=== PATIENT | female | born 1970 | race Caucasian/White ===

== ENCOUNTER 2017-10-14 05:42 | Emergency (ER) | payer BC ==
[~2017-10-14] VITALS: Ht 157.5 cm; Wt 70.3 kg
[2017-10-14] MEDS ORDERED: SODIUM CHLORIDE 0.9% 1,000 ML IV ONE (06:45)
[2017-10-14] MEDS ORDERED: KETOROLAC TROMETH 30 MG/ML 1ML VIAL IV ONE (06:45)
[2017-10-14 07:08] VITALS: BP 118/70
[2017-10-14 07:34] LABS: Basophils # (auto) 0.1 uL; Basophils % (auto) 0.7 % (0.0-2.0); Eosinophils # (auto) 0 uL; Hematocrit 35.8 % (36.0-46.0); Lymphocytes # (auto) 0.6 uL; Lymphocytes % (auto) 4.8 % (10.0-50.0); Mean Corpuscular Hemoglobin 30.2 pg (28.0-32.0); Mean Corpuscular Hgb Conc. 33.6 g/dL (32.0-36.0); Mean Corpuscular Volume 89.8 fL (80.0-100.0); Monocytes # (auto) 0.8 uL; Monocytes % (auto) 6.5 % (0.0-12.0); Neutrophils # (auto) 10.4 uL; Platelet Count (auto) 236 10^3/uL (140-450); Red Blood Cells 3.99 10^6/uL (4.0-5.20); White Blood Cell 11.9 10^3/uL (4.4-10.8)
[2017-10-14 07:43] LABS: Urine Bacteria NONE SEEN /hpf (None Seen); Urine Blood 2+ /uL (Negative); Urine WBC 17 /hpf (0 - 5)
[2017-10-14 07:47] LABS: Urine Specific Gravity 1.015 (1.001-1.035)
[2017-10-14 07:51] LABS: Albumin 3.5 g/dL (3.4-5.0); BUN/Creatinine Ratio 16.3; Calcium 8.3 mg/dL (8.5-10.1); Potassium 3.9 mmol/L (3.5-5.1)
[2017-10-14 07:54] LABS: Bilirubin, Total 0.5 mg/dL (0.2-1.0); Total Protein 7.8 g/dL (6.4-8.2)
[2017-10-14] MEDS ORDERED: cefTRIAXone 1GM/10ml IVPUSH 10 ML IV ONE (08:00)
== END 2017-10-14 08:31 | disposition home or self-care (01) ==
LOC: ER 05:42
DX: N20.0 Calculus of kidney (principal); N39.0 Urinary tract infection, site not specified; N28.1 Cyst of kidney, acquired
CPT/HCPCS: 36415; 74176; 80053; 81001; 85025; 96361; 96374; 96375; 99285; J1885; J7030

== ENCOUNTER 2017-10-15 13:39 | Inpatient (IN) | payer BC ==
[~2017-10-15] VITALS: Ht 160 cm; Wt 76.3 kg
[2017-10-15] MEDS ORDERED: LEVOFLOXACIN 500MG 100 ML IV ONE (14:15)
[2017-10-15 14:29] LABS: Basophils # (auto) 0 uL; Basophils % (auto) 0.2 % (0.0-2.0); Eosinophils # (auto) 0 uL; Hematocrit 33.2 % (36.0-46.0); Hemoglobin 11.1 g/dL (12.2-16.2); Lymphocytes # (auto) 0.6 uL; Lymphocytes % (auto) 4.8 % (10.0-50.0); Mean Corpuscular Hemoglobin 30.1 pg (28.0-32.0); Mean Corpuscular Hgb Conc. 33.5 g/dL (32.0-36.0); Mean Corpuscular Volume 89.8 fL (80.0-100.0); Monocytes # (auto) 0.4 uL; Monocytes % (auto) 3.5 % (0.0-12.0); Neutrophils # (auto) 10.7 uL; Neutrophils % (auto) 91.5 % (37.0-80.0); Platelet Count (auto) 184 10^3/uL (140-450); Red Cell Distribution Width 12.8 % (11.8-14.3); White Blood Cell 11.7 10^3/uL (4.4-10.8)
[2017-10-15 14:49] LABS: Lactic Acid w/Reflex 3.6 mmol/L (0.4-2.0)
[2017-10-15 14:54] LABS: Albumin 2.8 g/dL (3.4-5.0); BUN/Creatinine Ratio 16.2; Bilirubin, Total 0.7 mg/dL (0.2-1.0); Calcium 8.1 mg/dL (8.5-10.1); Magnesium 2.1 mg/dL (1.6-2.6); Potassium 3.6 mmol/L (3.5-5.1)
[2017-10-15] MEDS ORDERED: SODIUM CHLORIDE 0.9% 2,100 ML IV ONE (15:15)
[2017-10-15] MEDS ORDERED: SODIUM CHLORIDE 0.9% 1,000 ML IV ONE (15:45)
[2017-10-15] MEDS ORDERED: cefTRIAXone 1GM/10ml IVPUSH 10 ML IV ONE (15:45)
[2017-10-15] MEDS ORDERED: NITROGLYCERIN 0.4 MG SL TAB SL PRN (17:30)
[2017-10-15] MEDS ORDERED: LORazepam 0.5 MG TAB PO PRN (17:30)
[2017-10-15] MEDS ORDERED: TEMAZEPAM 15 MG CAP PO PRN (17:30)
[2017-10-15] MEDS ORDERED: NALBUPHINE HCL 10 MG/1ml INJECTION IV PRN (17:30)
[2017-10-15] MEDS ORDERED: MORPHINE SULF(PF) 0.5MG/ML 10ML VIAL IV PRN (17:30)
[2017-10-15] MEDS: SODIUM CHLORIDE 0.9% 1,000 ML IV SCH ×4 (17:30→23:45)
[2017-10-15] MEDS ORDERED: PROMETHAZINE HCL 25 MG/ML 1ML IV PRN (17:30)
[2017-10-15] MEDS ORDERED: DEXTROSE (50%) 50ML SYRG IV PRN (17:30)
[2017-10-15] MEDS: ACCU-CHEK COMFORT CURVE STRIP VI SCH (18:25)
[2017-10-15] MEDS: FAMOTIDINE 20 MG TAB PO SCH (22:33)
[2017-10-16] MEDS: ACCU-CHEK COMFORT CURVE STRIP VI SCH ×3 (02:00→11:44)
[2017-10-16] MEDS ORDERED: ALBUMIN 5% 250 ML IV ONE (03:15)
[2017-10-16 06:43] LABS: Urine WBC None Seen /hpf (0 - 5)
[2017-10-16 07:07] LABS: Urine Mucus FEW (None Seen); Urine Specific Gravity 1.012 (1.001-1.035)
[2017-10-16 07:08] LABS: Urine Bacteria MANY /hpf (None Seen); Urine Blood 4+ /uL (Negative)
[2017-10-16] MEDS: SODIUM CHLORIDE 0.9% 1,000 ML IV SCH ×4 (07:29→21:55)
[2017-10-16] MEDS: FAMOTIDINE 20 MG TAB PO SCH ×2 (08:48→21:54)
[2017-10-16] MEDS: ACETAMINOPHEN 500 MG TAB PO PRN ×2 (08:48→18:35)
[2017-10-16] MEDS: cefTRIAXone 1GM/10ml IVPUSH 10 ML IV SCH (08:48)
[2017-10-16 10:08] LABS: Basophils # (auto) 0 uL; Basophils % (auto) 0.4 % (0.0-2.0); Eosinophils # (auto) 0 uL; Eosinophils % (auto) 0.3 % (0.0-7.0); Hematocrit 27.1 % (36.0-46.0); Hemoglobin 9.2 g/dL (12.2-16.2); Lymphocytes # (auto) 0.8 uL; Lymphocytes % (auto) 6.9 % (10.0-50.0); Mean Corpuscular Hemoglobin 30.3 pg (28.0-32.0); Mean Corpuscular Hgb Conc. 33.8 g/dL (32.0-36.0); Mean Corpuscular Volume 89.7 fL (80.0-100.0); Monocytes # (auto) 0.8 uL; Monocytes % (auto) 7.2 % (0.0-12.0); Neutrophils # (auto) 9.4 uL; Neutrophils % (auto) 85.2 % (37.0-80.0); Platelet Count (auto) 147 10^3/uL (140-450); Red Blood Cells 3.03 10^6/uL (4.0-5.20); Red Cell Distribution Width 13.1 % (11.8-14.3)
[2017-10-16 10:33] LABS: Albumin 2.4 g/dL (3.4-5.0); BUN/Creatinine Ratio 16.7; Bilirubin, Total 0.3 mg/dL (0.2-1.0); Calcium 7.2 mg/dL (8.5-10.1); Potassium 3.5 mmol/L (3.5-5.1); Total Protein 5.8 g/dL (6.4-8.2)
[2017-10-16] MEDS: HYDROcodone-ACET 5/325MG TAB PO PRN (13:11)
[2017-10-16] MEDS ORDERED: IOHEXOL 300 MG/ML 75ml BOTTLE IJ ONE (14:49)
[2017-10-16 21:58] VITALS: BP 132/87
[2017-10-17 05:33] VITALS: BP 130/88
[2017-10-17] MEDS: ACETAMINOPHEN 500 MG TAB PO PRN (06:14)
[2017-10-17] MEDS: SODIUM CHLORIDE 0.9% 1,000 ML IV SCH ×2 (09:37→15:23)
[2017-10-17] MEDS: FAMOTIDINE 20 MG TAB PO SCH ×2 (09:37→21:56)
[2017-10-17] MEDS: cefTRIAXone 1GM/10ml IVPUSH 10 ML IV SCH (09:37)
[2017-10-17 09:52] VITALS: BP 134/86
[2017-10-17 13:21] VITALS: BP 137/86
[2017-10-17 17:19] VITALS: BP 137/88
[2017-10-17 22:00] VITALS: BP 134/87
[2017-10-18 05:00] VITALS: BP 134/89
[2017-10-18 07:20] LABS: Hematocrit 31.5 % (36.0-46.0); Hemoglobin 10.8 g/dL (12.2-16.2); Mean Corpuscular Hemoglobin 30.6 pg (28.0-32.0); Mean Corpuscular Hgb Conc. 34.2 g/dL (32.0-36.0); Mean Corpuscular Volume 89.5 fL (80.0-100.0); Platelet Count (auto) 248 10^3/uL (140-450); Red Blood Cells 3.51 10^6/uL (4.0-5.20); White Blood Cell 8.2 10^3/uL (4.4-10.8)
[2017-10-18 07:30] LABS: Basophils % (manual) 0 (0.0-2.0); Blast Cells 0; Metamyelocytes % 0; Myelocytes % 0; Promyelocytes % 0; Reactive Lymphocytes 0
[2017-10-18 08:17] LABS: Band Neutrophils % (manual) 2; Eosinophils % (manual) 1 (0-7); Lymphocytes % (manual) 12 (10.0-50.0); Monocytes % (manual) 11 (0-12)
[2017-10-18 08:38] VITALS: BP 143/93
[2017-10-18] MEDS: cefTRIAXone 1GM/10ml IVPUSH 10 ML IV SCH (08:46)
[2017-10-18] MEDS: FAMOTIDINE 20 MG TAB PO SCH ×2 (11:08→20:40)
[2017-10-18] MEDS ORDERED: FUROSEMIDE 40 MG/4 ML VIAL IV ONE (12:30)
[2017-10-18 12:45] VITALS: BP 140/92
[2017-10-18] MEDS: PIPERACILLIN-TAZOB 3.375GM 100 ML IV SCH ×2 (12:47→17:35)
[2017-10-18 15:16] VITALS: BP 140/92
[2017-10-18 15:30] VITALS: BP 140/92
[2017-10-18 17:33] VITALS: BP 144/85
[2017-10-18] MEDS: HYDROcodone-ACET 5/325MG TAB PO PRN (20:41)
== END 2017-10-18 21:04 | disposition home or self-care (01) | DRG 871 ==
LOC: ER 13:39 → TELE 13:40 → TELE-CENTR 10-16 12:21
PROVIDERS: ADMIT Internal Medicine; ATTEND Internal Medicine
DX: A41.9 Sepsis, unspecified organism (principal); N17.0 Acute kidney failure with tubular necrosis; E87.2 Acidosis; N10 Acute pyelonephritis; N20.0 Calculus of kidney; B96.20 Unspecified Escherichia coli [E. coli] as the cause of diseases classified elsewhere; D63.8 Anemia in other chronic diseases classified elsewhere; N28.1 Cyst of kidney, acquired; F41.9 Anxiety disorder, unspecified; G47.00 Insomnia, unspecified; E88.09 Other disorders of plasma-protein metabolism, not elsewhere classified; I10 Essential (primary) hypertension; Z16.12 Extended spectrum beta lactamase (ESBL) resistance; R74.0 Nonspecific elevation of levels of transaminase and lactic acid dehydrogenase [LDH]; R73.9 Hyperglycemia, unspecified; Z85.820 Personal history of malignant melanoma of skin; Z98.51 Tubal ligation status; Z90.49 Acquired absence of other specified parts of digestive tract
CPT/HCPCS: 36415; 71046; 74177; 76775; 78707; 80053; 81001; 82962; 83036; 83605; 83735; 83880; 84132; 84484; 85007; 85025; 85027; 85652; 86141; 87040; 87086; 87088; 87186; 93005; 94761; 96361; 96365; 96375; J1956; J2543; Q9967

== ENCOUNTER 2018-10-12 11:06 | Inpatient (IN) | payer BC, OTHER ==
[~2018-10-12] VITALS: Ht 157.5 cm; Wt 79.0 kg
[2018-10-12] MEDS ORDERED: SODIUM CHLORIDE 0.9% 1,000 ML IVB ONE (11:43)
[2018-10-12] MEDS ORDERED: ONDANSETRON HCL 4 MG/2 ML VIAL IV ONE (11:45)
[2018-10-12] MEDS ORDERED: KETOROLAC TROMETH 30 MG/ML 1ML VIAL IV ONE (11:45)
[2018-10-12 12:00] LABS: Hematocrit 37.8 % (36.0-46.0); Hemoglobin 12.6 g/dL (12.2-16.2); Mean Corpuscular Hemoglobin 29.4 pg (28.0-32.0); Mean Corpuscular Hgb Conc. 33.2 g/dL (32.0-36.0); Mean Corpuscular Volume 88.4 fL (80.0-100.0); Platelet Count (auto) 219 10^3/uL (140-450); Red Blood Cells 4.28 10^6/uL (4.0-5.20); Red Cell Distribution Width 13.5 % (11.8-14.3); White Blood Cell 14.9 10^3/uL (4.4-10.8)
[2018-10-12 12:02] LABS: Band Neutrophils % (manual) 0; Basophils % (manual) 0 (0.0-2.0); Blast Cells 0; Eosinophils % (manual) 0 (0-7); Metamyelocytes % 0; Myelocytes % 0; Promyelocytes % 0; Reactive Lymphocytes 0
[2018-10-12 12:09] LABS: Albumin 3.6 g/dL (3.4-5.0); Calcium 8.5 mg/dL (8.5-10.1); Potassium 3.6 mmol/L (3.5-5.1)
[2018-10-12 12:12] LABS: BUN/Creatinine Ratio 21.1; Bilirubin, Total 0.7 mg/dL (0.2-1.0); Total Protein 7.7 g/dL (6.4-8.2)
[2018-10-12 12:26] LABS: Lymphocytes % (manual) 5 (10.0-50.0); Monocytes % (manual) 3 (0-12)
[2018-10-12] MEDS ORDERED: KETOROLAC TROMETH 60MG/2ML VIAL IV ONE (12:45)
[2018-10-12 12:48] LABS: Urine Bacteria NONE SEEN /hpf (None Seen); Urine Blood 1+ /uL (Negative); Urine Mucus FEW (None Seen); Urine Specific Gravity 1.016 (1.001-1.035); Urine WBC 37 /hpf (0 - 5)
[2018-10-12] MEDS ORDERED: cefTRIAXone 1GM/50ML D5W 50 ML IV ONE (13:45)
[2018-10-12] MEDS ORDERED: ONDANSETRON HCL 4 MG/2 ML VIAL IV PRN (14:00)
[2018-10-12] MEDS ORDERED: HYDROcodone-ACET 5/325MG TAB PO PRN (14:00)
[2018-10-12] MEDS: SODIUM CHLORIDE 0.9% 1,000 ML IV SCH ×2 (14:45→23:13)
--- NOTE | 2018-10-12 20:25 | NUR ---
[facility] admit from ER ANAIMENDEL admitted to [facility] to room 238. History of ESBL in the urine. Patient oriented to BARB DEWEY, primary RN, unit, room, bed, and unit policies regarding patient care and visiting hours.Family at bedside. Patient alert and oriented x4. No S/S of distress or SOB on room air. Reports pain to back. Will administer medication see eMAR. Patient weighed by bedscale and encouraged to call if they need something. All questions and concerns addressed, patient verbalized understanding.
[2018-10-12 20:30] VITALS: BP 118/57
[2018-10-12] MEDS: MORPHINE SULF INJ 2 MG/ML SYRINGE 1ML IV PRN (20:42)
--- NOTE | 2018-10-12 20:50 | NUR ---
Patient requesting Tylenol for slight fever 99.3
[2018-10-12] MEDS: ACETAMINOPHEN 500 MG TAB PO PRN (20:55)
[2018-10-12 22:00] VITALS: BP 118/57
[2018-10-13] MEDS: MORPHINE SULF INJ 2 MG/ML SYRINGE 1ML IV PRN (03:12)
--- NOTE | 2018-10-13 03:16 | NUR ---
Placed urine bacteria culture order per protocol to R/O ESBL in urine patient on contact precaution for ESBL ecoli in urine
--- NOTE | 2018-10-13 04:20 | NUR ---
TEMP 103.1 Cooling measures and will give PRN Tylenol
[2018-10-13] MEDS: ACETAMINOPHEN 500 MG TAB PO PRN ×2 (04:29→20:32)
[2018-10-13 04:58] VITALS: BP 122/64
--- NOTE | 2018-10-13 05:31 | NUR ---
Reassessment Temp 100.5 Patient continue to have elevated temp despite medication and cooling measures. Heart rate also elevated was at 110 bpm when temperature was 103.1 now at [address] Poe
--- NOTE | 2018-10-13 05:36 | NUR ---
Paged Renan Duncan section hand left message awaiting call back
--- NOTE | 2018-10-13 05:54 | NUR ---
Renan called back Update with patient status, including reason for visit, medical history trends of vital signs and current labs. History of ESBL in urine. Orders received, read back and verified Zosyn 3.375 IV Q6 give first dose now
[2018-10-13] MEDS: PIPERACILLIN-TAZOB 3.375GM 100 ML IV SCH ×3 (06:21→17:23)
[2018-10-13 06:27] LABS: Basophils # (auto) 0 uL; Basophils % (auto) 0.2 % (0.0-2.0); Eosinophils # (auto) 0 uL; Hematocrit 31.3 % (36.0-46.0); Hemoglobin 10.7 g/dL (12.2-16.2); Lymphocytes # (auto) 0.4 uL; Lymphocytes % (auto) 4.2 % (10.0-50.0); Mean Corpuscular Hemoglobin 30.3 pg (28.0-32.0); Mean Corpuscular Hgb Conc. 34.2 g/dL (32.0-36.0); Mean Corpuscular Volume 88.7 fL (80.0-100.0); Monocytes # (auto) 0.6 uL; Monocytes % (auto) 6.1 % (0.0-12.0); Neutrophils # (auto) 8.8 uL; Neutrophils % (auto) 89.5 % (37.0-80.0); Platelet Count (auto) 145 10^3/uL (140-450); Red Blood Cells 3.52 10^6/uL (4.0-5.20); Red Cell Distribution Width 13.3 % (11.8-14.3); White Blood Cell 9.9 10^3/uL (4.4-10.8)
[2018-10-13] MEDS: SODIUM CHLORIDE 0.9% 1,000 ML IV SCH (06:27)
[2018-10-13 06:36] LABS: Potassium 3.4 mmol/L (3.5-5.1)
[2018-10-13 06:40] LABS: BUN/Creatinine Ratio 19.6; Calcium 7.1 mg/dL (8.5-10.1)
--- NOTE | 2018-10-13 08:00 | NUR ---
ASSESSMENT NOTE PATIENT IS ALERT ORIENTED X4, RESTING IN BED COMFORTABLY, CONTINUE TO HAVE A FLANK ACHING PAIN, BUT REFUSING TO TAKE ANY MEDICATIONS AT THIS TIME, SELF REPOSITION AND AMBULATE NEEDED, CONTINUE ON PIN MANAGEMENT NEEDED, CALL LIGHT WITHIN REACH.
[2018-10-13] MEDS ORDERED: POTASSIUM CHLORIDE 60 MEQ, LIDOCAINE 1% (LOCAL ANESTH.) 6 ML in SODIUM CHL 0.9% 500 ML IV ONE (08:30)
[2018-10-13 09:00] VITALS: BP 117/64
--- NOTE | 2018-10-13 09:30 | NUR ---
FAMILY PATIENT'S DAUGHTER AT BED SIDE
[2018-10-13] MEDS: SODIUM BICARBONATE IV SCH (10:01)
[2018-10-13] MEDS: POTASSIUM CHLORIDE IV SCH (10:01)
[2018-10-13] MEDS: SOD CHL 0.45% IV SCH (10:01)
--- NOTE | 2018-10-13 10:30 | NUR ---
PATIENT AT BED SIDE
[2018-10-13 13:00] VITALS: BP 118/70
--- NOTE | 2018-10-13 15:00 | NUR ---
DR HECTOR IS HERE FOLLOWING UP ON PT WITH NEW ORDERS
[2018-10-13] MEDS ORDERED: LACTULOSE 20Gm/30ML SOLN PO ONE (15:15)
[2018-10-13 17:39] VITALS: BP 118/70
[2018-10-13 22:00] VITALS: BP 129/76
[2018-10-14] MEDS: PIPERACILLIN-TAZOB 3.375GM 100 ML IV SCH ×3 (00:27→11:58)
[2018-10-14] MEDS: SODIUM BICARBONATE IV SCH ×3 (00:29→16:09)
[2018-10-14] MEDS: SOD CHL 0.45% IV SCH ×3 (00:29→16:09)
[2018-10-14] MEDS: POTASSIUM CHLORIDE IV SCH ×3 (00:29→16:09)
[2018-10-14 04:42] VITALS: BP 113/67
[2018-10-14 06:16] LABS: Calcium 7.9 mg/dL (8.5-10.1); Potassium 3.6 mmol/L (3.5-5.1)
[2018-10-14 06:18] LABS: BUN/Creatinine Ratio 12.2
--- NOTE | 2018-10-14 08:00 | NUR ---
ASSESSMENT NOTE PATIENT IS ALERT ORIENTED X4, RESTING IN BED COMFORTABLY, DENIES ANY FLANK ACHING PAIN AT THIS TIME, SELF REPOSITION AND AMBULATE NEEDED, CONTINUE ON PIN MANAGEMENT NEEDED, CALL LIGHT WITHIN REACH.
[2018-10-14 09:00] VITALS: BP 117/70
--- NOTE | 2018-10-14 10:00 | NUR ---
FAMILY AND DAUGHTER AT BED SIDE.
[2018-10-14 13:00] VITALS: BP 121/71
--- NOTE | 2018-10-14 14:30 | NUR ---
DR HECTOR IS HERE FOLLOWING UP ON PT WITH DISCHARGE HOME INSTRUCTION, PT VERBALIS UNDERSTANDING
[2018-10-14] MEDS: ACETAMINOPHEN 500 MG TAB PO PRN (15:18)
--- NOTE | 2018-10-14 16:50 | NUR ---
Discharge instructions given as ordered. Encourage to follow up with PMD as instructed. All questions and concerns addressed. Patient verbalized understanding. Medication reconciliation form completed and copy given to patient. . IV removed with catheter intact, pressure dressing applied. Patient taken to vehicle via wheelchair with all personal belongings, accompanied by staff and family member. No distress noted at time of departure.
== END 2018-10-14 18:09 | disposition home or self-care (01) | DRG 690 ==
LOC: ER 11:11 → OVERFLOW 13:57 → EAST 20:22
PROVIDERS: ADMIT Hospitalist; ATTEND Hospitalist
DX: N39.0 Urinary tract infection, site not specified (principal); N28.1 Cyst of kidney, acquired; N20.0 Calculus of kidney; I11.9 Hypertensive heart disease without heart failure; E87.6 Hypokalemia; R31.9 Hematuria, unspecified; Z82.49 Family history of ischemic heart disease and other diseases of the circulatory system; Z87.442 Personal history of urinary calculi; Z85.820 Personal history of malignant melanoma of skin
CPT/HCPCS: 36415; 74176; 76775; 80048; 80053; 81001; 83690; 85007; 85025; 85027; 87086; 94761; 96361; 96365; 96375; G0378; J0696; J1885; J2001; J2405; J2543

== ENCOUNTER 2022-06-09 08:52 | Emergency (ER) | payer OTHER ==
[~2022-06-09] VITALS: Ht 157.5 cm; Wt 80.0 kg
[2022-06-09] MEDS ORDERED: MORPHINE SULFATE 4 MG/ML SYR/VIAL IV ONE (09:30)
[2022-06-09] MEDS ORDERED: SODIUM CHLORIDE 0.9% 1,000 ML IVB ONE (09:30)
[2022-06-09] MEDS ORDERED: ONDANSETRON HCL 4 MG/2 ML VIAL IV ONE (09:30)
[2022-06-09 09:44] LABS: Basophils # (auto) 0.1 10 ^3/uL (0-0.2); Eosinophils # (auto) 0.1 10 ^3/uL (0-0.8); Eosinophils % (auto) 1.1 % (0.0-7.0); Lymphocytes # (auto) 1.1 10 ^3/uL (0.4-5.4); Monocytes # (auto) 0.4 10 ^3/uL (0-1.3); Nucleated Red Blood Cells % 0.1 %
[2022-06-09 09:46] LABS: Basophils % (auto) 0.8 % (0.0-2.0); Hematocrit 36.6 % (36.0-46.0); Hemoglobin 11.8 g/dL (12.2-16.2); Lymphocytes % (auto) 14.5 % (10.0-50.0); Mean Corpuscular Hemoglobin 26.5 pg (28.0-32.0); Mean Corpuscular Hgb Conc. 32.2 g/dL (32.0-36.0); Mean Corpuscular Volume 82.2 fL (80.0-100.0); Monocytes % (auto) 5.7 % (0.0-12.0); Neutrophils # (auto) 5.9 10 ^3/uL (1.6-8.6); Neutrophils % (auto) 77.9 % (37.0-80.0); Red Blood Cells 4.45 10^6/uL (4.0-5.20); Red Cell Distribution Width 14.1 % (11.8-14.3); White Blood Cell 7.6 10^3/uL (4.4-10.8)
[2022-06-09 10:00] LABS: Urine Bacteria FEW /hpf (None Seen); Urine Blood Negative /uL (Negative); Urine Mucus FEW (None Seen); Urine Specific Gravity 1.014 (1.001-1.035); Urine WBC 41 /hpf (0 - 5)
[2022-06-09] MEDS ORDERED: cefTRIAXone 1GM/50ML D5W 50 ML IV ONE (10:15)
[2022-06-09 10:17] LABS: Albumin 3.8 g/dL (3.4-5.0); Magnesium 2.3 mg/dL (1.6-2.6); Potassium 3.2 mmol/L (3.5-5.1)
[2022-06-09 10:20] LABS: BUN/Creatinine Ratio 18.9; Bilirubin, Total 0.8 mg/dL (0.2-1.0); Total Protein 7.8 g/dL (6.4-8.2)
[2022-06-09] MEDS ORDERED: TRAM-297 PO (12:02)
[2022-06-09] MEDS ORDERED: NITR-87 PO (12:02)
[2022-06-09 15:58] VITALS: BP 130/63
[2022-06-10] MEDS ORDERED: CIPR-173 PO (12:53)
== END 2022-06-09 15:59 | disposition home or self-care (01) ==
LOC: ER 08:52
DX: Q61.3 Polycystic kidney, unspecified (principal); R10.32 Left lower quadrant pain; E78.5 Hyperlipidemia, unspecified; I10 Essential (primary) hypertension; Z87.442 Personal history of urinary calculi; Z90.49 Acquired absence of other specified parts of digestive tract; Z98.51 Tubal ligation status
CPT/HCPCS: 36415; 74176; 80053; 81001; 83690; 83735; 85025; 96365; 96375; 99285; J0696; J2270; J2405; J7030

== ENCOUNTER → 2024-05-02 | Outpatient (CLI) | payer OTHER ==
[~2024-05-02] MED LIST: CIPR-173 PO; NITR-87 PO; TRAM-297 PO
[2024-05-02 13:12] LABS: Basophils # (auto) 0.1 10 ^3/uL (0-0.2); Basophils % (auto) 1.1 % (0.0-2.0); Eosinophils # (auto) 0.1 10 ^3/uL (0-0.8); Eosinophils % (auto) 1.3 % (0.0-7.0); Hematocrit 38.2 % (36.0-46.0); Hemoglobin 13.1 g/dL (12.2-16.2); Lymphocytes # (auto) 1.3 10 ^3/uL (0.4-5.4); Lymphocytes % (auto) 25.9 % (10.0-50.0); Mean Corpuscular Hgb Conc. 34.4 g/dL (32.0-36.0); Mean Corpuscular Volume 90.3 fL (80.0-100.0); Monocytes # (auto) 0.3 10 ^3/uL (0-1.3); Monocytes % (auto) 6.7 % (0.0-12.0); Neutrophils # (auto) 3.3 10 ^3/uL (1.6-8.6); Platelet Count (auto) 259 10^3/uL (140-450); Red Blood Cells 4.23 10^6/uL (4.0-5.20); Red Cell Distribution Width 12.7 % (11.8-14.3); White Blood Cell 5.1 10^3/uL (4.4-10.8)
[2024-05-02 13:22] LABS: Urine Bacteria MANY /hpf (None Seen); Urine Blood Negative /uL (Negative); Urine Clarity Turbid (Clear); Urine Color Light-Yellow (Yellow); Urine Mucus FEW (None Seen); Urine Protein, UAD 1+ (Negative); Urine Specific Gravity 1.016 (1.001-1.035); Urine Squamous Epithelial Cell FEW /hpf (<5); Urine Urobilinogen Normal (Negative); Urine WBC 366 /hpf (0 - 5); Urine pH 5.5 (5.0-9.0)
[2024-05-02 13:37] LABS: Alanine Aminotransferase 18 U/L (7-40); Alkaline Phosphatase 105 U/L (46-116); Anion Gap 8 (5-15); Aspartate Aminotransferase 17 U/L (13-40); BUN/Creatinine Ratio 20.4 (10.0-20.0); Blood Urea Nitrogen 23 mg/dL (9-23); Carbon Dioxide 25 mmol/L (20-31); Glucose 101 mg/dL (74-106); Potassium 3.8 mmol/L (3.5-5.1); Sodium 142 mmol/L (136-145)
[2024-05-02 13:38] LABS: Albumin 4.5 g/dL (3.2-4.8); Bilirubin, Total 0.6 mg/dL (0.2-1.0); HDL Cholesterol 51 mg/dL (40-59); Total Protein 7.2 g/dL (5.7-8.2)
[2024-05-02 13:39] LABS: Calcium 10.4 mg/dL (8.7-10.4); Chloride 109 mmol/L (98-107); Cholesterol 270 mg/dL (< 200); LDL Cholesterol 195 mg/dL (< 100); Triglycerides 240 mg/dL (< 150)
[2024-05-02 13:42] LABS: Folate (Folic Acid) 20.63 ng/mL (>5.38)
[2024-05-02 17:08] LABS: Uric Acid 6.6 mg/dL (3.1-7.8)
[2024-05-03 06:06] LABS: Thyroid Peroxidase (TPO) Ab 14 IU/mL (0-34)
[2024-05-03 07:06] LABS: Complement C3 144 mg/dL (82-167); Rheumatoid Arthritis Factor 10.3 IU/mL (<14.0)
[2024-05-04 21:06] LABS: Actin (Smooth Muscle) Antibody 5 Units (0-19); Mitochondrial (M2) Antibody <20.0 Units (0.0-20.0)
[2024-05-05 19:06] LABS: Antiparietal Cell Antibody 10.6 Units (0.0-20.0)
== END | disposition home or self-care (01) ==
LOC: LAB 12:30
PROVIDERS: ATTEND Internal Medicine
DX: E61.2 Magnesium deficiency (principal); E79.0 Hyperuricemia without signs of inflammatory arthritis and tophaceous disease; D51.9 Vitamin B12 deficiency anemia, unspecified; E55.9 Vitamin D deficiency, unspecified; E78.49 Other hyperlipidemia; R73.09 Other abnormal glucose; R68.89 Other general symptoms and signs; R94.6 Abnormal results of thyroid function studies; R82.90 Unspecified abnormal findings in urine; R82.79 Other abnormal findings on microbiological examination of urine
CPT/HCPCS: 36415; 80053; 80061; 81001; 82306; 82607; 82746; 83036; 84443; 84550; 85025; 86160; 86225; 86235; 86376; 86431; 87086; 87088; 87186

== ENCOUNTER 2024-05-09 08:54 | Emergency (ER) | payer OTHER ==
[~2024-05-09] VITALS: Ht 157.5 cm; Wt 80.8 kg
--- NOTE | 2024-05-09 09:09 | ED.PDOC ---
General HPI Comments A 53 YEAR OLD FEMALE PRESENTS TO THE ED WITH CHIEF COMPLAINT OF URINARY PROBLEM. PATIENT REPORTS THAT SHE HAS BEEN EXPERIENCING PAINFUL URINATION WITH ASSOCIATED SUPRAPUBIC PAIN, BURNING, URINARY FREQUENCY AND URGENCY FOR THE PAST 2 WEEKS. PATIENT RELAYS THAT SHE HAD LAB WORK PERFORMED ON 05/02/24 FOR THE SAME COMPLAINT, BUT HAS NOT RECEIVED HER RESULTS OR ANY MEDICATION TO TREAT HER SYMPTOMS. PATIENT DENIES ANY N/V/D, FEVER, CHILLS, HEMATURIA, OR FLANK PAIN AND OTHER COMPLAINTS. NO OTHER SYMPTOMS REPORTED AT THIS TIME OF CARE. Time Seen by MD: 09:05 Primary Care Provider: RADHA Araujo notes: Nurses Notes, Medications, Allergies Allergies: Coded Allergies: NO KNOWN ALLERGIES (Unverified , 10/14/17) Home Meds Active Scripts Phenazopyridine HCl (Phenazopyridine Hydrochlo) 200 Mg Tab, 200 MG PO TID, #6 TAB Prov:JOE VIDALES 05/09/24 Levofloxacin Hemihydrate (LEVAQUIN 500 MG) 500 Mg Tab, 1 TAB PO DAILY, #7 TAB Prov:JOE VIDALES 05/09/24 Ciprofloxacin Hcl (Cipro) 500 Mg Tab, 1 TAB PO BID, #14 TAB Prov:HEATHER RAMOS MD 06/10/22 Tramadol Hcl (Ultram) 50 Mg Tab, 1 TAB PO Q6HR, #30 TAB Prov:HEATHER RAMOS MD 06/09/22 Nitrofurantoin Monohydrate Mac (Macrobid) 100 Mg Cap, 100 MG PO BID PRN for 7 Days, #14 CAP Prov:HEATHER RAMOS MD 06/09/22 Information Source: Patient Mode of Arrival: Ambulatory Severity: Moderate Inability to void: None Timing: Weeks Duration: Since onset, Days Prehospital treatment: None Onset: Spontaneous Symptoms: Dysuria, Frequency, Urgency History of: Kidney stone Location: Suprapubic associated signs and symptoms: Dysuria, Frequency, Urgency Past Medical History PAST MEDICAL HISTORY: Cancer, High Lipids, HTN, Kidney Stones Surgical History: BTL, Cholecystectomy, Tubal Ligation Surgical History (Other): OOPHORECTOMY ASSEMBLER RADIO AND ELECTRICAL History: No Pertinent ASSEMBLER RADIO AND ELECTRICAL History Family History Family History: Reviewed,noncontributory to illness, Unknown Social History Smoker: Non-Smoker Alcohol: Denies ETOH Use Drugs: Denies Drug Use Lives In: Home Constitutional: denies: chills, diaphoresis, fatigue, fever, malaise, sweats, weakness, others EENTM: denies: blurred vision, double vision, ear bleeding, ear discharge, ear drainage, ear pain, ear ringing, eye pain, eye redness, hearing loss, mouth pain, mouth swelling, nasal discharge, nose bleeding, nose congestion, nose pain, photophobia, tearing, throat pain, throat swelling, voice changes, others Respiratory: denies: cough, hemoptysis, orthopnea, SOB at rest, shortness of breath, SOB with excertion, stridor, wheezing, others Cardiovascular: denies: chest pain, dizzy spells, diaphoresis, Dyspnea on exertion, edema, irregular heart beat, left arm pain, lightheadedness, palpitations, PND, syncope, others Gastrointestinal: denies: abdomen distended, abdominal pain, blood streaked bowels, constipated, diarrhea, dysphagia, difficulty swallowing, hematemesis, melena, nausea, poor appetite, poor fluid intake, rectal bleeding, rectal pain, vomiting, others Genitourinary: reports: burning, dysuria, frequency, urgency; denies: abnormal vagina bleeding, dyspareunia, flank pain, hematuria, incontinence, pain, , vagina discharge, others Neurological: denies: dizziness, fainting, headache, left sided numbness, left sided weakness, numbness, paresthesia, pre-existing deficit, right sided numbness, right sided weakness, seizure, speech problems, tingling, tremors, weakness, others Musculoskeletal: denies: back pain, gout, joint pain, joint swelling, muscle p ain, muscle stiffness, neck pain, others Integumetry: denies: bruises, change in color, change in hair/nails, dryness, laceration, lesions, lumps, rash, wounds, others Allergic/Immunocompromised: denies: Difficulty Healing, Frequent Infections, Hives, Itching, others Hematologic/Lymphatic: denies: anemia, blood clots, easy bleeding, easy bruising, swollen glands, others Endocrine: denies: excessive hunger, excessive sweating, excessive thirst, excessive urination, flushing, intolerance to cold, intolerance to heat, unexplained weight gain, unexplained weight loss, others Psychiatric: denies: anxiety, bipolar disorder, depression, hopeless, panic disorder, schizophrenia, sleepless, suicidal, others All Other Systems: Reviewed and Negative Physical Exam General Appearance: No Apparent Distress, Normal HEENT: Normal ENT Inspection, PERRL/EOMI, Pharynx Normal Neck: Full Range of Motion, Non-Tender, Normal, Normal Inspection Respiratory: Chest Non-Tender, Lungs Clear, No Accessory Muscle Use, No Respiratory Distress, Normal Breath Sounds Cardiovascular: No Edema, No JVD, No Murmur, No Gallop, Normal Peripheral Pulses, Regular Rate/Rhythm Breast Exam: Deferred Gastrointestinal: No Organomegaly, No Pulsatile Mass, Normal Bowel Sounds, Soft, Suprapubic, Tenderness (SUPRAPUBIC, NO GUARDING AND REBOUND TENDERNESS. ) Genitalia: Deferred Pelvic: Normal External Exam, Tender Uterus Rectal: Deferred Extremities: No calf tenderness, Normal capillary refill, Normal inspection, Normal range of motion, Non-tender, No pedal edema Musculoskeletal : Apperance: Normal Neurologic: Alert, high speed operator II-XII nml as Tested, No Motor Deficits, Normal Affect, Normal Mood, No Sensory Deficits Cerebellar Function: Normal Reflexes: Normal Skin: Dry, Normal Color, Warm Peripheral Pulses: 2+ carotid (R), 2+ carotid (L) Lymphatic: No Adenopathy Was a procedure done? Was a procedure done?: No Differential Diagnosis Kidney stone (Female): Urolithiasis Urinary Problem (Female): Urolithiasis, UTI X-Ray, Labs, Meds, VS Vital Signs Date Time Temp Pulse Resp B/P (MAP) Pulse Ox O2 Delivery O2 Flow Rate FiO2 05/09/24 10:07 98.2 75 18 142/90 (107) 98 98.2 05/09/24 09:24 73 18 97 Room Air 05/09/24 09:24 98.1 73 18 147/97 (114) 97 98.1 05/09/24 09:06 98.1 73 18 147/97 (114) 97 Lab Test 05/09/24 09:04 Range/Units Urine Color Light-yellow Yellow Urine Clarity Cloudy H Clear Urine pH 5.5 5.0-9.0 Urine Specific [place] 1.014 1.001-1.035 Urine Protein Trace H Negative Urine Ketones Negative Negative Urine Blood Trace H Negative /uL Urine Nitrite 1+ H Negative Urine Bilirubin Negative Negative Urine Urobilinogen Normal Negative mg/dL Urine Leukocyte Esterase 3+ Negative /uL Urine RBC 5 0 - 4 /hpf Urine WBC 372 0 - 5 /hpf Urine WBC Clumps Present None Seen /hpf Urine Squamous Epithelial Cells Few <5 /hpf Urine Bacteria Many H None Seen /hpf Urine Glucose Normal Normal mg/dL Current Medications Medications (Trade) Dose Ordered Sig/Joshua Route Start Time Stop Time Status Last Admin Ceftriaxone Sodium (Rocephin) 1,000 mg ONCE ONCE IM 05/09/24 10:00 05/09/24 10:01 DC 05/09/24 10:23 Phenazopyridine HCl (Pyridium Tablet) 200 mg ONCE ONCE PO 05/09/24 10:00 05/09/24 10:01 DC 05/09/24 10:23 X-Ray, Labs, Meds, VS Comment I reviewed the following notes from patient's past medical encounters: 05/02/24 FOR UTI SYMPTOMS, OLD CHART REVIEWED. The following tests were ordered, and results were reviewed by me: UA, URINE BACTERIAL CULTURE Additional Information was gathered from interviewing the following independent historians: None I reviewed and agreed with the following test results read by other providers: None I discussed treatment and results with medical personnel. TREATMENT: ROCEPHIN 1GM IM Time of 1ST Reevaluation: 09:35 Reevaluation 1ST: Improved Patient Education/Counseling: Diagnosis, Treatment, Need For Follow Up Family Education/Counseling: Diagnosis, Treatment, No Family Present Medical Screening: No EMC Exist At This Time Departure 1 Departure Time of Disposition: 10:36 Impression: Primary Impression: UTI (urinary tract infection) Qualified Codes: N30.00 - Acute cystitis without hematuria Disposition: HOME / SELF CARE / HOMELESS Condition: Stable Additional Instructions: FOLLOW UP WITH PCP WITHIN 2-3 DAYS. e-Prescriptions Phenazopyridine HCl (Phenazopyridine Hydrochlo) 200 Mg Tab 200 MG PO TID, #6 TAB Prov: JOE VIDALES 05/09/24 Levofloxacin Hemihydrate (LEVAQUIN 500 MG) 500 Mg Tab 1 TAB PO DAILY, #7 TAB Prov: JOE VIDALES 05/09/24 Discharged With: Self Critical Care Note Critical Care Time?: No Stability Stability form required: No Heart Score Heart Score: Heart Score Response (Comments) Value History N/A 0 EKG N/A 0 Age N/A 0 Risk Factors N/A 0 Troponin N/A 0 Total 0 I personally scribed for JOE VIDALES ([email or web address]) on 05/09/24 at 09:09. Electronically submitted by Renzo Celis ([email or web address]). I personally scribed for JOE VIDALES ([email or web address]) on 05/09/24 at 10:26. Electronically submitted by Renzo Celis ([email or web address]). JOE VIDALES May 09, 2024 09:09
[2024-05-09 09:50] LABS: Urine Bacteria MANY /hpf (None Seen); Urine Blood TRACE /uL (Negative); Urine Color Light-Yellow (Yellow); Urine Protein, UAD TRACE (Negative); Urine Specific Gravity 1.014 (1.001-1.035); Urine Squamous Epithelial Cell FEW /hpf (<5); Urine Urobilinogen Normal (Negative); Urine WBC 372 /hpf (0 - 5); Urine WBC Clumps PRESENT /hpf (None Seen); Urine pH 5.5 (5.0-9.0)
[2024-05-09 09:51] LABS: Urine Clarity Cloudy (Clear)
[2024-05-09 10:07] VITALS: BP 142/90; PULSE 75; RESP 18; TEMP 98.2; O2SAT 98
[2024-05-09] MEDS: cefTRIAXone SOD 1,000 MG VL IM ONE (10:23)
[2024-05-09] MEDS: PHENAZOPYRIDINE HCL 100 MG TAB PO ONE (10:23)
[2024-05-09] MEDS ORDERED: LEVO500T91 PO (10:31)
[2024-05-09] MEDS ORDERED: PHEN-922 PO (10:31)
== END 2024-05-09 10:38 | disposition home or self-care (01) ==
LOC: ER 08:54
DX: N39.0 Urinary tract infection, site not specified (principal); E78.5 Hyperlipidemia, unspecified; I10 Essential (primary) hypertension; Z79.899 Other long term (current) drug therapy; Z90.49 Acquired absence of other specified parts of digestive tract; Z87.442 Personal history of urinary calculi; Z98.890 Other specified postprocedural states
CPT/HCPCS: 81001; 87086; 96372; 99283; J0696